=== PATIENT | male | born 1970 | race Hispanic/Latino ===

== ENCOUNTER 2019-06-08 14:22 | Emergency (ER) | payer OTHER ==
[~2019-06-08] VITALS: Ht 177.8 cm; Wt 113.2 kg
[2019-06-08] MEDS ORDERED: NAPR-837 PO (14:28)
[2019-06-08 15:55] VITALS: BP 136/81
--- NOTE | 2019-06-09 07:11 | REP ---
LEFT HIP, TWO VIEWS: There is no evidence of an acute fracture, dislocation or intrinsic bone disease. IMPRESSION: No fracture or dislocation. Electronically Signed by Alejandro Garza MD 06/09/2019 09:41 A
== END 2019-06-08 15:58 | disposition home or self-care (01) ==
LOC: M ED 14:22
DX: S76.212A Strain of adductor muscle, fascia and tendon of left thigh, initial encounter (principal); X58.XXXA Exposure to other specified factors, initial encounter; Y92.9 Unspecified place or not applicable; Y93.9 Activity, unspecified; Y99.9 Unspecified external cause status